=== PATIENT | female | born 1990 | race American Indian/Alaskan Native ===

== ENCOUNTER 2016-08-20 17:18 | Emergency (ER) | payer MEDICAID ==
[2016-08-20 18:45] LABS: Hematocrit 34.6 % (30.3-42.9); Hemoglobin 11.4 gm/dl (10.1-14.3); Mean Corpuscular HGB Conc 33 % (30-34); Mean Corpuscular Hemoglobin 29 pg (28-32); Mean Corpuscular Volume 88 fl (79-97); Platelet Count 317 K/mm3 (140-440); Red Blood Count 3.95 M/mm3 (3.65-5.03); Red Cell Distribution Width 14.6 % (13.2-15.2)
[2016-08-20 20:26] LABS: Bilirubin,Urine NEG (Negative); Blood,Urine SM (Negative); Ketones,Urine NEG (Negative); Leukocyte Esterase,Urine NEG (Negative); Mucus,Urine FEW /HPF; Nitrite,Urine NEG (Negative); Protein,Urine <15 mg/dL mg/dL (Negative); Urobilinogen,Urine < 2.0 mg/dL (<2.0)
--- NOTE | 2016-08-20 20:32 | Emergency Department Report ---
ED Female HPI - General Chief complaint: Vaginal Bleeding Stated complaint: VAGINAL BLEEDING/18WKS Time Seen by Provider: 08/20/16 20:17 Source: patient, RN notes reviewed, old records reviewed Mode of arrival: Ambulatory Limitations: No Limitations - History of Present Illness Initial comments: This is a 26-year-old female. She is previously unknown to me. She is 3, para 2. Last menstrual period is April 10. 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 His past medical history of preeclampsia and -induced hypertension. Presents to the ER complaining of possible episode of bleeding. Patient reports that she defecated earlier on today, saw no blood in her bowel movement , but reports that she saw blood on the towel when she wiped. There is no vaginal bleeding that she is aware of. There is no hematuria. No irritative or obstructive urinary symptoms. No fevers or chills. No chest pain. No shortness of breath. No abdominal pain. Symptoms have since resolved. She denies receptive anal intercourse. She denies recent vigorous sexual intercourse. MD Complaint: other (per hpi) -: This afternoon Consistency: now resolved Improves with: none Worsens with: none Are you Now?: Yes Associated Symptoms: denies: abdominal pain, nausea/vomiting, fever/chills, headaches, loss of appetite, dysuria, hematuria, rash, seizure, shortness of breath, syncope, weakness - Related Data Sexually active: Yes Previous Rx's Medication Instructions Recorded Last Taken Type oxyCODONE /ACETAMINOPHEN [Percocet 2 tab PO Q6HR PRN #30 tablet 05/15/14 Unknown Rx 5/325] HYDROmorphone [Dilaudid] 1 mg PO Q4HR #30 tablet 05/17/14 Unknown Rx Amoxicillin/K Clav Tab [Augmentin 1 each PO Q12HR #20 tablet 05/19/14 Unknown Rx 500 MG TAB] Ferrous Sulfate [Feosol 325 MG tab] 325 mg PO BID #60 tablet 05/19/14 Unknown Rx Ibuprofen [Motrin] 800 mg PO TID PRN #30 tablet 05/19/14 Unknown Rx Labetalol [Normodyne TAB] 200 mg PO BID #60 tablet 05/19/14 Unknown Rx NIFEdipine XL [Procardia Xl] 90 mg PO QDAY #60 tablet 05/19/14 Unknown Rx Sulfamethoxazole/Trimethoprim 1 each PO BID #6 tablet 07/07/14 Unknown Rx [Bactrim Ds] traMADol [Ultram 50 MG tab] 50 mg PO Q6HR PRN #20 tablet 04/12/15 Unknown Rx Allergies Allergy/AdvReac Type Severity Reaction Status Date / Time NSAIDS (Non-Steroidal Allergy Swelling Verified 03/17/14 07:41 Anti-Inflamma ED Review of Systems ROS: Stated complaint: VAGINAL BLEEDING/18WKS Other details as noted in HPI Constitutional: denies: fever Eyes: denies: vision change ENT: denies: epistaxis Respiratory: denies: cough Gastrointestinal: denies: abdominal pain, vomiting Genitourinary: hematuria. denies: dysuria, frequency Musculoskeletal: denies: back pain Skin: denies: rash, lesions Neurological: denies: headache, weakness Psychiatric: anxiety ED Past Medical Hx - Past Medical History Previous Medical History?: Yes Hx Hypertension: Yes (PIH, preeclampsia with previous ) Hx Congestive Heart Failure: No Hx Diabetes: No Hx Deep Vein Thrombosis: No Hx Renal Disease: No Hx Sickle Cell Disease: No Hx Seizures: No Hx Asthma: No Hx COPD: No Hx HIV: No Additional medical history: Pre-eclampsia - Surgical History Past Surgical History?: Yes Additional Surgical History: c section - Social History Smoking Status: Never Smoker Substance Use Type: None - Medications Home Medications: Home Medications Medication Instructions Recorded Confirmed Last Taken Type oxyCODONE /ACETAMINOPHEN [Percocet 2 tab PO Q6HR PRN #30 tablet 05/15/14 Unknown Rx 5/325] HYDROmorphone [Dilaudid] 1 mg PO Q4HR #30 tablet 05/17/14 Unknown Rx Amoxicillin/K Clav Tab [Augmentin 1 each PO Q12HR #20 tablet 05/19/14 Unknown Rx 500 MG TAB] Ferrous Sulfate [Feosol 325 MG tab] 325 mg PO BID #60 tablet 05/19/14 Unknown Rx Ibuprofen [Motrin] 800 mg PO TID PRN #30 tablet 05/19/14 Unknown Rx Labetalol [Normodyne TAB] 200 mg PO BID #60 tablet 05/19/14 Unknown Rx NIFEdipine XL [Procardia Xl] 90 mg PO QDAY #60 tablet 05/19/14 Unknown Rx Sulfamethoxazole/Trimethoprim 1 each PO BID #6 tablet 07/07/14 Unknown Rx [Bactrim Ds] traMADol [Ultram 50 MG tab] 50 mg PO Q6HR PRN #20 tablet 04/12/15 Unknown Rx ED Physical Exam - General Limitations: No Limitations General appearance: alert, in no apparent distress - Head Head exam: Present: atraumatic, normocephalic - Eye Eye exam: Present: normal appearance, EOMI. Absent: nystagmus - ENT ENT exam: Present: normal exam, normal orophraynx, mucous membranes moist, normal external ear exam - Neck Neck exam: Present: normal inspection, full ROM. Absent: tenderness, meningismus - Respiratory Respiratory exam: Present: normal lung sounds bilaterally. Absent: respiratory distress, wheezes, rales, rhonchi, stridor, chest wall tenderness - Cardiovascular Cardiovascular Exam: Present: regular rate, normal rhythm, normal heart sounds. Absent: bradycardia, tachycardia, irregular rhythm, systolic murmur, diastolic murmur, rubs, gallop - GI/Abdominal GI/Abdominal exam: Present: soft, normal bowel sounds, other (her abdomen is nontender, there is no rebound, guarding or peritoneal signs. Uterus is appropriate for dates.). Absent: distended, tenderness, guarding, rebound, rigid, pulsatile mass - Extremities Exam Extremities exam: Present: normal inspection, full ROM, normal capillary refill. Absent: tenderness, pedal edema, joint swelling, calf tenderness - Back Exam Back exam: Present: normal inspection, full ROM. Absent: tenderness, CVA tenderness (R), CVA tenderness (L), muscle spasm, paraspinal tenderness, vertebral tenderness - Neurological Exam Neurological exam: Present: alert, oriented X3, normal gait, other (Extraocular movements intact. Tongue midline. No facial droop. Facial sensation intact to light touch in the V1, V2, V3 distribution bilaterally. 5 and 5 strength in 4 extremities.. Sensation is intact to light touch in 4 extremities.). Absent : motor sensory deficit - Psychiatric Psychiatric exam: Present: normal affect, normal mood - Skin Skin exam: Present: warm, dry, intact, normal color. Absent: rash ED Course Vital Signs 08/20/16 08/20/16 08/20/16 17:44 20:08 20:09 Temperature 98.3 F 99.3 F Pulse Rate 114 H 111 H Respiratory 16 18 Rate Blood Pressure 151/82 Blood Pressure 131/79 [Left] O2 Sat by Pulse 99 98 98 Oximetry 08/20/16 22:40 Temperature 97.9 F Pulse Rate 107 H Respiratory 18 Rate Blood Pressure Blood Pressure 125/56 [Left] O2 Sat by Pulse 100 Oximetry - Reevaluation(s) Reevaluation #1: 08/20/16 21:20 Differential diagnosis: Placenta previa, urinary tract infection, anal fissure, hemorrhoids Assessment and plan: 26-year-old female proximal 80 weeks with resolved episode of bleeding. She is afebrile, hypertension has since resolved, tachycardia has resolved. Given possibility of atypical presentation for placenta previa, a transabdominal ultrasound is ordered. Once that has been resulted, we'll perform an external gynecologic examination and rectal examination Reevaluation #2: 08/20/16 22:36\ Pelvic examination: No cervical motion tenderness, no adnexal tenderness, no obvious bleeding. Gynecologic/rectal examination: No obvious hemorrhoids, possible fissure at 6:00 , brown stool, trace guaiac positive. escorted by marcello TREVIZO during rectal exam Abdominal ultrasound shows intra uterine , no obvious placenta previa. Icing heart rate now 107, this may be physiologic tachycardia of , with a blood pressure 125/56. The patient reports that she feels well, and has follow-up tomorrow with her primary care [facility]PER[facility]. May have a fissure versus constipation. Hemoglobin and hematocrit stable, I don 't believe patient requires admission to the hospital at this time. She is instructed on how to perform sitz baths. She will be discharged. Return precautions are reviewed. ED Medical Decision Making - Lab Data Result diagrams: 08/20/16 18:28 08/20/16 18:28 Vital Signs 08/20/16 08/20/16 08/20/16 17:44 20:08 20:09 Temperature 98.3 F 99.3 F Pulse Rate 114 H 111 H Respiratory 16 18 Rate Blood Pressure 151/82 Blood Pressure 131/79 [Left] O2 Sat by Pulse 99 98 98 Oximetry Labs 08/20/16 08/20/16 08/20/16 18:28 18:28 18:28 WBC 11.0 RBC 3.95 Hgb 11.4 Hct 34.6 MCV 88 MCH 29 MCHC 33 RDW 14.6 Plt Count 317 Lymph % (Auto) 20.4 Centre % (Auto) 9.0 H Eos % (Auto) 1.0 Baso % (Auto) 1.0 Lymph # 2.2 Centre # 1.0 H Eos # 0.1 Baso # 0.1 Seg Neutrophils % 68.6 Seg Neutrophils # 7.6 HCG, Quant 5070 H Urine Color Urine Turbidity Urine pH Ur Specific [place] Urine Protein Urine Glucose (UA) Urine Ketones Urine Blood Urine Nitrite Urine Bilirubin Urine Urobilinogen Ur Leukocyte Esterase Urine WBC (Auto) Urine RBC (Auto) U Epithel Cells (Auto) Urine Mucus Blood Type A POSITIVE 08/20/16 Unknown WBC RBC Hgb Hct MCV MCH MCHC RDW Plt Count Lymph % (Auto) Centre % (Auto) Eos % (Auto) Baso % (Auto) Lymph # Centre # Eos # Baso # Seg Neutrophils % Seg Neutrophils # HCG, Quant Urine Color Yellow Urine Turbidity Clear Urine pH 7.0 Ur Specific [place] 1.012 Urine Protein <15 mg/dl Urine Glucose (UA) >=500 Urine Ketones Neg Urine Blood Sm Urine Nitrite Neg Urine Bilirubin Neg Urine Urobilinogen < 2.0 Ur Leukocyte Esterase Neg Urine WBC (Auto) 1.0 Urine RBC (Auto) 2.0 U Epithel Cells (Auto) < 1.0 Urine Mucus Few Blood Type - Radiology Data Radiology results: pending, report reviewed, image reviewed Transabdominal ultrasound demonstrates an intrauterine , 18 weeks and 1 day, good correlation to last menstrual period, no evidence for placenta previa or abruption. Of note, no clinical suspicion for placental abruption at this time. Critical care attestation.: If time is entered above; I have spent that time in minutes in the direct care of this critically ill patient, excluding procedure time. ED Disposition Clinical Impression: Qualifiers: Weeks of gestation: 18 weeks Qualified Code(s): Z3A.18 - 18 weeks gestation of Disposition: DISCHARGED TO HOME OR SELFCARE Is pt being admited?: No Does the pt Need Aspirin: No Condition: Stable Instructions: Constipation (ED), Anal Fissure (ED), High Fiber Diet (ED) Additional Instructions: Continue current outpatient medications. Laboratory studies were essentially unremarkable. Urinalysis demonstrated sugar in the urine. Blood pressure was initially elevated. He should be followed up within the next week by her primary care implementation specialist. 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 Drink 6-8 cups of water per day. Eat plenty of fruits, fibers, vegetables. you may also fill a hot tub with water, and soak your buttocks in it as needed ER right away with fevers or chills, chest pain or shortness of breath, intractable nausea or vomiting, inability to tolerate liquid feeds, new, worsening or different symptoms. Referrals: PRIMARY CARE, [Primary Care Provider] - 3-5 Days [facility] [Provider Group] - 3-5 Days Forms: Accompanied Note, Work/School Release Form(ED)
--- NOTE | 2016-08-20 21:41 | Ultrasound Report ---
FINAL REPORT EXAM: US OB \T\gt; = 14 WEEKS FETUS HISTORY: ? vag bleed . Possible previa. TECHNIQUE: Limited obstetrical ultrasound PRIORS: Ultrasound 07/28/2016 FINDINGS: LMP: 04/10/2016 clinical Age: 18 W 6 d US Age (average) = 18 W 1 d EFW (BPD,HC,AC,FL) = 221g 33g (0 lbs. 8oz. 1oz.) LMP EDC 01/15/2017 US EDC 01/20/2017 CI 75.1 (Range 74 to 83 HC/AC 1.22 (Range 1.07 To 1.29 FL/BPD 66.0 FL/HC 17.5 (Range 13.6 to 20.2 FL/AC 21.3 BPD 4.0 cm corresponding to age 18 weeks 1 day HC 15.1 cm corresponding to age 18 weeks 1 day AC 12.4 cm corresponding to age 18 weeks 0 days FL 2.7 cm corresponding to age 18 weeks 0 days Presentation: Transverse with the head to the maternal right Activity: Monitored Situs: Normal Placental location: Anterior without evidence for previa or abruption Placental grade: 0 Cardiac motion: 166 BPM using M-mode doppler Amniotic Fluid Volume: Adequate Cervical Length: 4.1 cm anatomic evaluation is limited due to the gestational age. IMPRESSION: Single intrauterine viable with an approximate age of 18 weeks 1 days with good correlation to the LMP. No evidence for placenta previa or abruption is seen.
[2016-08-20 21:57] LABS: Alanine Aminotransferase 10 units/L (7-56); Albumin 3.6 g/dL (3.9-5); Alkaline Phosphatase 74 units/L (35-129); Anion Gap 20 mmol/L; Bilirubin,Total < 0.2 mg/dL (0.1-1.2); Blood Urea Nitrogen 5 mg/dL (7-17); Calcium 9.4 mg/dL (8.4-10.2); Carbon Dioxide 20 mmol/L (22-30); Glucose 155 mg/dL (65-100); Sodium 135 mmol/L (137-145); Total Protein 7.2 g/dL (6.3-8.2)
[2016-08-20 23:18] VITALS: BP 125/56
== END 2016-08-20 22:55 | disposition home or self-care (01) ==
LOC: ED 17:18
DX: Z34.82 Encounter for supervision of other normal pregnancy, second trimester (principal); O16.2 Unspecified maternal hypertension, second trimester; Z3A.18 18 weeks gestation of pregnancy; Z88.8 Allergy status to other drugs, medicaments and biological substances
CPT/HCPCS: 36415; 76805; 80053; 81001; 82271; 84702; 85025; 86850; 86900; 86901

== ENCOUNTER 2016-12-19 15:04 | Outpatient (CLI) | payer MEDICAID ==
[2016-12-19 17:00] LABS: Hematocrit 34.8 % (30.3-42.9); Hemoglobin 11.3 gm/dl (10.1-14.3); Mean Corpuscular HGB Conc 33 % (30-34); Mean Corpuscular Hemoglobin 29 pg (28-32); Mean Corpuscular Volume 88 fl (79-97); Platelet Count 262 K/mm3 (140-440); Red Blood Count 3.95 M/mm3 (3.65-5.03); Red Cell Distribution Width 15.1 % (13.2-15.2); White Blood Count 7.3 K/mm3 (4.5-11.0)
[2016-12-19 17:16] LABS: Lactate Dehydrogenase 262 units/L (91-180); Uric Acid 5.4 mg/dL (3.5-7.6)
[2016-12-19 17:25] LABS: Bacteria,Urine 2+ /HPF (Negative); Bilirubin,Urine NEG (Negative); Blood,Urine NEG (Negative); Ketones,Urine 80 mg/dL (Negative); Leukocyte Esterase,Urine NEG (Negative); Mucus,Urine FEW /HPF; Nitrite,Urine NEG (Negative); Protein,Urine <15 mg/dL mg/dL (Negative); Urobilinogen,Urine < 2.0 mg/dL (<2.0)
[2016-12-19 18:07] VITALS: BP 133/77
[2016-12-19] MEDS ORDERED: TYLENOL #3 PO ONE (19:00)
[2016-12-19] MEDS ORDERED: TYLENOL PO ONE (19:00)
== END 2016-12-19 18:40 | disposition home or self-care (01) ==
LOC: TRG 15:04
PROVIDERS: ATTEND Obstetrics & Gynecology
DX: O47.03 False labor before 37 completed weeks of gestation, third trimester (principal); Z3A.36 36 weeks gestation of pregnancy
CPT/HCPCS: 36415; 59025; 81001; 82565; 82962; 83615; 84450; 84550; 85027; 86850; 86900; 86901

== ENCOUNTER 2017-02-24 05:53 | Emergency (ER) | payer MEDICAID ==
[2017-02-24 06:19] VITALS: BP 136/86
[2017-02-24] MEDS ORDERED: XYLOCAINE 2% INFILTRATI ONE (07:04)
--- NOTE | 2017-02-24 07:10 | Emergency Department Report ---
HPI - General Chief Complaint: Skin/Abscess/Foreign Body Time Seen by Provider: 02/24/17 07:04 - HPI HPI: This is a 26-year-old -[place] female presents to the emergency department with a boil or an abscess that has formed within the right armpit. Over the past 4 days. She says that she has a history of this one time previously in the other armpit. She has not taken anything for her symptoms prior to presentation. No recent travel or sick contacts at home. She does not have a primary care physician. She denies any current medical conditions but did just recently have a child and had some -induced hypertension at that time. She feels that the area is tender, swollen and red and warm. ED Past Medical Hx - Past Medical History Hx Hypertension: Yes (PIH, preeclampsia with previous ) Hx Congestive Heart Failure: No Hx Diabetes: No Hx Deep Vein Thrombosis: No Hx Renal Disease: No Hx Sickle Cell Disease: No Hx Seizures: No Hx Asthma: No Hx COPD: No Hx HIV: No Additional medical history: Pre-eclampsia - Surgical History Additional Surgical History: c section - Social History Smoking Status: Never Smoker Substance Use Type: None - Medications Home Medications: Home Medications Medication Instructions Recorded Confirmed Last Taken Type oxyCODONE /ACETAMINOPHEN [Percocet 2 tab PO Q6HR PRN #30 tablet 05/15/14 Unknown Rx 5/325] HYDROmorphone [Dilaudid] 1 mg PO Q4HR #30 tablet 05/17/14 Unknown Rx Amoxicillin/K Clav Tab [Augmentin 1 each PO Q12HR #20 tablet 05/19/14 Unknown Rx 500 MG TAB] Ferrous Sulfate [Feosol 325 MG tab] 325 mg PO BID #60 tablet 05/19/14 Unknown Rx Ibuprofen [Motrin] 800 mg PO TID PRN #30 tablet 05/19/14 Unknown Rx Labetalol [Normodyne TAB] 200 mg PO BID #60 tablet 05/19/14 Unknown Rx NIFEdipine XL [Procardia Xl] 90 mg PO QDAY #60 tablet 05/19/14 Unknown Rx Sulfamethoxazole/Trimethoprim 1 each PO BID #6 tablet 07/07/14 Unknown Rx [Bactrim Ds] traMADol [Ultram 50 MG tab] 50 mg PO Q6HR PRN #20 tablet 04/12/15 Unknown Rx HYDROcodone/APAP 5-325 [Perry 1 each PO Q6H PRN #10 tablet 02/24/17 Unknown Rx 5-325 mg TAB] Sulfamethoxazole/Trimethoprim 1 each PO BID #14 tablet 02/24/17 Unknown Rx [Bactrim DS TAB] ED Review of Systems ROS: Stated complaint: BOIL Other details as noted in HPI Comment: All other systems reviewed and negative Constitutional: denies: chills, fever Eyes: denies: eye pain, eye discharge, vision change ENT: denies: ear pain, throat pain Respiratory: denies: cough, shortness of breath, wheezing Cardiovascular: denies: chest pain, palpitations Gastrointestinal: denies: abdominal pain, nausea, diarrhea Genitourinary: denies: urgency, dysuria, discharge Musculoskeletal: denies: back pain, joint swelling, arthralgia Skin: lesions, change in color Neurological: denies: headache, weakness, paresthesias Physical Exam - Physical Exam Vital Signs: Vital Signs 02/24/17 06:14 Temperature 99.1 F Pulse Rate 96 H Respiratory 16 Rate Blood Pressure 136/86 Blood Pressure 136/86 [Left] O2 Sat by Pulse 100 Oximetry Physical Exam: GENERAL: The patient is well-developed well-nourished. HENT: Normocephalic. Atraumatic. Patient has moist mucous membranes. EYES: Extraocular motions are intact. Pupils equal reactive to light bilaterally. NECK: Supple. Trachea is midline. CHEST/LUNGS: Clear to auscultation. There is no respiratory distress noted. HEART/CARDIOVASCULAR: Regular. There is no tachycardia. ABDOMEN: Abdomen is soft, nontender. Patient has normal bowel sounds. SKIN: There appears to be an abscess and cellulitis to the right axilla. There is erythematous, thickened skin. Underlying mass there is a area of swelling that is tender and appears slightly fluctuant. NEURO: The patient is awake, alert, and oriented. The patient is cooperative. The patient has no focal neurologic deficits. The patient has normal speech. MUSCULOSKELETAL: There is no tenderness or deformity. There is no limitation range of motion. There is no evidence of acute injury. ED Course Vital Signs 02/24/17 06:14 Temperature 99.1 F Pulse Rate 96 H Respiratory 16 Rate Blood Pressure 136/86 Blood Pressure 136/86 [Left] O2 Sat by Pulse 100 Oximetry - I & D Right Arm Type of Procedure: Simple Site: Right axilla Blade Size: 11 I & D Procedure: betadine prep, sterile drapes applied, sterile dressing applied Progress: Betadine used to clean the area. 2 mL of 2% lidocaine without epinephrine were used for superficial and slightly more deep localized anesthesia. An 11 blade scalpel was then used to make a 1.5 cm incision to the area that appeared most fluctuant. There was no discharge of pus. Attempted to break up any loculations with forceps but still no purulent discharge. Pressure held and then sterile gauze applied. ED Medical Decision Making - Medical Decision Making 36-year-old female presents with a right axilla cellulitis and underlying abscess. The abscess is fluctuant, however after the I&D was done there did not appear to be any significant discharge of pus. Pressure was held and a sterile dressing was then placed. She was given a dose of pain medication and antibiotics in the emergency department. She will go on a prescription for both. We discussed using warm compress multiple times per day and we discussed monitoring for any further/worsening infection. Vital signs stable including being afebrile. - Differential Diagnosis abscess, cellulitis, cyst, folliculitis, hidradenitis Critical Care Time: No Critical care attestation.: If time is entered above; I have spent that time in minutes in the direct care of this critically ill patient, excluding procedure time. ED Disposition Clinical Impression: Cellulitis of axilla, right, Abscess of axilla, right Disposition: DC-01 TO HOME OR SELFCARE Is pt being admited?: No Condition: Stable Instructions: Cellulitis (ED), Abscess (ED) Additional Instructions: Please follow-up with your primary care physician in the next few days. You should use warm, but not hot, compresses to the right arm pit for a few times per day over the next few days to see if you can help and express any infection from the abscess. If the redness starts spreading, or there is any worsening of the infection, then you need to return to the emergency department or be seen by a medical provider sooner. Take the antibiotics as prescribed. You have been prescribed a medication that is sedating and therefore should not be taken prior to driving, working, and responsible for children and in no way should be mixed with alcohol of any quantity. Prescriptions: HYDROcodone/APAP 5-325 [Perry 5-325 mg TAB] 1 each PO Q6H PRN #10 tablet PRN Reason: Pain Sulfamethoxazole/Trimethoprim [Bactrim DS TAB] 1 each PO BID #14 tablet Referrals: PRIMARY CARE, [Primary Care Provider] - EP[facility]ANIO Time of Disposition: 07:47
[2017-02-24] MEDS ORDERED: BACTRIM DS PO ONE (07:34)
[2017-02-24] MEDS ORDERED: NORCO 5/325 PO ONE (07:34)
== END 2017-02-24 08:13 | disposition home or self-care (01) ==
LOC: ED 05:53
DX: L02.411 Cutaneous abscess of right axilla (principal); L03.111 Cellulitis of right axilla; I10 Essential (primary) hypertension
CPT/HCPCS: 99282

== ENCOUNTER 2018-08-12 08:10 | Emergency (ER) | payer MEDICAID ==
--- NOTE | 2018-08-12 09:34 | Emergency Department Report ---
- General Chief complaint: Wound/Laceration Stated complaint: INCISION INFLAMMED Time Seen by Provider: 08/12/18 09:00 Source: patient Mode of arrival: Ambulatory Limitations: No Limitations - History of Present Illness Initial comments: 28-year-old female presents to the hospital complaining of irritation at the area of her scar. Patient had a delivery 1 year ago and states that she had a cellulitis infection afterwards. She is concerned that she has redeveloped an infection. She states this is different from the previous infection which was red, warm, and required hospitalization. For the past 2-3 days she has had burning, pruritus, and moisture to the area of her C- section scar. She also reports dry pruritic rash under her left breast. No reports of fever or purulent drainage. - Related Data Previous Rx's Medication Instructions Recorded Last Taken Type Clotrimazole 1% [Lotrimin 1%] 1 applic TP BID 28 Days tube 08/12/18 Unknown Rx Allergies Allergy/AdvReac Type Severity Reaction Status Date / Time latex Allergy Hives Verified 04/03/17 15:52 NSAIDS (Non-Steroidal Allergy Swelling Verified 04/03/17 15:52 Anti-Inflamma Abscess Boil HPI - HPI Chief Complaint: Wound/Laceration Stated Complaint: INCISION INFLAMMED Time Seen by Provider: 08/12/18 09:00 Home Medications: Previous Rx's Medication Instructions Recorded Last Taken Type Clotrimazole 1% [Lotrimin 1%] 1 applic TP BID 28 Days tube 08/12/18 Unknown Rx Allergies/Adverse Reactions: Allergies Allergy/AdvReac Type Severity Reaction Status Date / Time latex Allergy Hives Verified 04/03/17 15:52 NSAIDS (Non-Steroidal Allergy Swelling Verified 04/03/17 15:52 Anti-Inflamma ED Review of Systems ROS: Stated complaint: INCISION INFLAMMED Other details as noted in HPI Comment: All other systems reviewed and negative ED Past Medical Hx - Past Medical History Hx Hypertension: Yes (PIH, preeclampsia with previous ) Hx Congestive Heart Failure: No Hx Diabetes: No Hx Deep Vein Thrombosis: No Hx Renal Disease: No Hx Sickle Cell Disease: No Hx Seizures: No Hx Asthma: No Hx COPD: No Hx HIV: No Additional medical history: Pre-eclampsia - Surgical History Additional Surgical History: c section - Social History Smoking Status: Never Smoker Substance Use Type: None - Medications Home Medications: Home Medications Medication Instructions Recorded Confirmed Last Taken Type Clotrimazole 1% [Lotrimin 1%] 1 applic TP BID 28 Days tube 08/12/18 Unknown Rx ED Physical Exam - General Limitations: No Limitations - Other Other exam information: General: No limitations, patient is alert in no acute distress Head exam: Atraumatic, normocephalic Eyes exam: Normal appearance ENT: Moist mucous membrane Neck exam: Normal inspection, full range of motion Respiratory exam: Clear to auscultation bilateral, no wheezes, rales, crackles Cardiovascular: Normal rate and rhythm Abdomen: Soft, nondistended, and nontender, with normal bowel sounds, no rebound, or guarding Extremity: Full range of motion normal inspection no deformity Back: Normal Inspection, full range of motion, no tenderness Neurologic: Alert, oriented x3 Psychiatric: normal affect, normal mood Skin: Patient has a fungal type of rash to the area of her scar and pannus overlying the area. It is dark discolored, moist, sharply demarcated. Patient also has a similar appearing rash under her left breast but it is not moist. No warmth or erythema. ED Course Vital Signs 08/12/18 08:54 Temperature 99.0 F Pulse Rate 80 Blood Pressure 136/79 ED Medical Decision Making - Medical Decision Making Patient has a fungal infarction from overlying skin at area pannus and lower abdomen. Will be prescribed a cream and instructed to keep area dry. - Differential Diagnosis cellulitis, fungal infection, tinea Critical Care Time: No Critical care attestation.: If time is entered above; I have spent that time in minutes in the direct care of this critically ill patient, excluding procedure time. ED Disposition Clinical Impression: Fungal infection of skin of abdomen Disposition: DC-01 TO HOME OR SELFCARE Is pt being admited?: No Does the pt Need Aspirin: No Condition: Stable Instructions: Hai Purcell (ED) Additional Instructions: Take the medication as prescribed. Follow up with your doctor or the clinic/doctor provided. Return if symptoms worsen as indicated by your discharge instructions Prescriptions: Clotrimazole 1% [Lotrimin 1%] 1 applic TP BID 28 Days tube Referrals: ALEXI TODD MD [Primary Care Provider] - 3-5 Days [facility] [Provider Group] - 3-5 Days Time of Disposition: 09:36
== END 2018-08-12 09:41 | disposition home or self-care (01) ==
LOC: ED 08:10
CPT/HCPCS: 99282

== ENCOUNTER 2020-01-06 08:28 | Day surgery (SDC) | payer MEDICAID, OTHER ==
[2020-01-05 10:47] LABS: Hematocrit 32.2 % (30.3-42.9); Hemoglobin 10.3 gm/dl (10.1-14.3); Mean Corpuscular HGB Conc 32 % (30-34); Mean Corpuscular Volume 80 fl (79-97); Platelet Count 388 K/mm3 (140-440); Red Blood Count 4.04 M/mm3 (3.65-5.03); Red Cell Distribution Width 17.2 % (13.2-15.2)
--- NOTE | 2020-01-05 14:15 | Anesthesia Consultation ---
Anesthesia Consult and Med Hx Date of service: 01/05/20 - Airway Anesthetic Teeth Evaluation: Good ROM Head & Neck: Adequate Mental/Hyoid Distance: Adequate Mallampati Class: Class II Intubation Access Assessment: Probably Good - Pulmonary Exam CTA: Yes - Cardiac Exam Cardiac Exam: RRR - Pre-Operative Health Status ASA Pre-Surgery Classification: ASA2 Proposed Anesthetic Plan: General - Pulmonary Hx Smoking: Yes Hx Respiratory Symptoms: No - Cardiovascular System Hx Hypertension: Yes Hx Heart Attack/AMI: No Hx Cardia Arrhythmia: No - Central Nervous System CVA: No - Gastrointestinal Hx Gastroesophageal Reflux Disease: No - Endocrine Hx Renal Disease: No Hx Liver Disease: No Hx Insulin Dependent Diabetes: No Hx Non-Insulin Dependent Diabetes: No Hx Thyroid Disease: No - Hematic Hx Anemia: Yes - Other Systems Hx Obesity: Yes (BMI 36) - Additional Comments Anesthesia Medical History Comments: No hx anesthetic complications. Patient experienced presumed anxiety attack immediately prior to emergent under GA and expressed significant apprehension about upcoming surgery for that reason. Will give anxielytic preoperatively.
[~2020-01-06 08:28] MED LIST: GABAPENTIN 300 MG CAP PO NR; LACTATED RINGERS 1,000 ML IV SCH; MAGNESIUM OXIDE 400 MG TAB PO SCH; MIDAZOLAM 2 MG/2 ML INJ IV NR
[2020-01-06] MEDS ORDERED: ONDANSETRON 4 MG/2 ML INJ IV PRN (08:51)
--- NOTE | 2020-01-06 08:51 | Anesthesia Day of Surgery ---
Anesthesia Day of Surgery - Day of Surgery Patient Examined: Yes Patient H&P Reviewed: Yes Patient is NPO: Yes
--- NOTE | 2020-01-06 11:50 | Short Stay Summary ---
Short Stay Documentation Date of service: 01/06/20 Narrative H&P: 26-year-old -0-1-2 with undesired fertility. The patient is undergoing a permanent sterilization with Filshie clips. She is aware of other contraceptive options and has elected to undergo permanent sterilization. - History Principal diagnosis: Undesired fertility Past Medical History: No medical history Past Surgical History: Social history: single - Allergies and Medications Current Medications: Allergies latex Allergy (Verified 01/01/20 16:04) Hives NSAIDS (Non-Steroidal Anti-Inflamma Allergy (Verified 01/01/20 16:04) Hives strawberry Allergy (Verified 01/01/20 16:04) Hives Home Medications Medication Instructions Recorded Confirmed Last Taken Type Ergocalciferol(Vitamin D2)(Nf) 400 unit PO DAILY 01/01/20 01/01/20 Unknown History [Vitamin D (Nf)] Active Medications Gabapentin (Gabapentin) 600 mg PO PREOP NR Stop: 01/06/20 23:59 Last Admin: 01/06/20 09:11 Dose: 600 mg Documented by: Hydromorphone HCl (Dilaudid) 0.5 mg IV Q10MIN PRN PRN Reason: Pain , Severe (7-10) Stop: 01/06/20 22:00 Lactated Ringer's (Lactated Ringers) 1,000 mls @ 100 mls/hr IV DIRECT WILLI Stop: 01/06/20 23:59 Last Admin: 01/06/20 09:10 Dose: 100 mls/hr Documented by: Magnesium Oxide (Mag-Ox) 400 mg PO PREOP WILLI Stop: 01/06/20 23:59 Last Admin: 01/06/20 09:12 Dose: 400 mg Documented by: Midazolam HCl (Versed) 2 mg IV PREOP NR Stop: 01/06/20 23:59 Ondansetron HCl (Zofran) 4 mg IV ONCE PRN PRN Reason: Nausea And Vomiting Stop: 01/06/20 16:00 - Physical exam General appearance: no acute distress Integumentary: no rash HEENT: Atraumatic Lungs: Clear to auscultation Breasts: deferred Heart: Regular rate Gastrointestinal: normal Female Genitourinary: deferred Rectal Exam: deferred Extremities: no ischemia Neurological: Normal gait - Brief post op/procedure progress note Date of procedure: 01/06/20 Pre-op diagnosis: Unwanted fertility Post-op diagnosis: same Procedure: Laparoscopic bilateral tubal ligation with Filshie clips Anesthesia: AUREA Surgeon: LIMA ESTRADA Estimated blood loss: minimal Pathology: none Condition: stable - Hospital course Hospital course: The patient was admitted the day of surgery underwent a laparoscopic bilateral tubal ligation with Filshie clips. Please see operative note for details of surgery. Her postoperative course was uneventful. - Disposition Condition at discharge: Good Disposition: DC-01 TO HOME OR SELFCARE - Discharge Diagnoses (1) Unwanted fertility Status: Acute Short Stay Discharge Plan Activity: other (Pelvic rest for 1 week) Diet: regular Additional Instructions: Follow-up is not required Follow-up as needed Prescriptions: HYDROcodone/APAP 5-325 [[place] 5/325] 1 each PO Q6HR PRN #20 tablet PRN Reason: Pain
[2020-01-06] MEDS ORDERED: BUPIVACAINE/PF (0.5%) 5 MG/1 ML 10 ML VIAL INFILTRATI ONE ×2 (12:08→13:05)
[2020-01-06] MEDS ORDERED: propofoL 200 MG/20 ML VIAL IV ONE ×2 (12:09→12:41)
[2020-01-06] MEDS ORDERED: dexAMETHasone 20 MG/5 ML VIAL ONE (12:09)
[2020-01-06] MEDS ORDERED: LIDOCAINE MPF (2%) 20 MG/1 ML VIAL 5 ML ONE (12:09)
[2020-01-06] MEDS ORDERED: ONDANSETRON 4 MG/2 ML INJ ONE (12:09)
[2020-01-06] MEDS ORDERED: ROCURONIUM 50 MG/5 ML INJ IV ONE (12:09)
[2020-01-06] MEDS ORDERED: fentaNYL 100 MCG/2 ML INJ ONE (12:09)
[2020-01-06] MEDS ORDERED: SODIUM CHLORIDE 0.9% IRR 1,500 ML BOTTLE IR ONE (13:06)
[2020-01-06] MEDS ORDERED: GLYCOPYRROLATE 0.4 MG/2 ML INJ ONE (13:12)
[2020-01-06] MEDS ORDERED: NEOSTIGMINE 10MG/10 ML INJ MDV ONE (13:12)
--- NOTE | 2020-01-06 13:26 | Operative Report ---
Operative Report Operative Report: Date of surgery: January 06, 2020 Preoperative diagnosis: Unwanted fertility Postoperative diagnosis: Same as above Procedure: Laparoscopic bilateral tubal ligation with Filshie clips Surgeon: Sofia Moore M.D. Anesthesia: General endotracheal anesthesia Estimated blood loss: Minimal Pathology: None Findings: Normal tubes and ovaries bilaterally; densely adherent uterus to the anterior abdominal wall. Indication: 29-year-old with undesired fertility Procedure: The patient was taken to the operating room and given general endotracheal anesthesia without complication. The patient is prepped and draped in a normal sterile fashion. A bivalve speculum was placed in the patient's vagina and a single-tooth tenaculum was placed on the anterior lip of the cervix .A uterine acorn manipulator was placed, and the bivalve speculum was then removed. Attention was then turned to the patient's abdomen where a 5 mm infraumbilical skin incision was then made. A Veress needle was placed and peritoneal entry was verified water-filled syringe. Insufflation of the peritoneal cavity was performed with CO2 gas. A 5 mm trocar was placed and the laparoscope was then inserted. The patient was then placed in Trendelenburg. A 7 mm left lateral incision was then made. Under direct visualization a 7 mm trocar was then placed. General survey of the patient's abdomen revealed normal tubes and ovaries; densely adherent uterus to the anterior abdominal wall.. The fallopian tube was then followed out to the fimbriated end. The Filshie clip was placed on the ampullary portion of the tube. This was performed on the contralateral side as well. The trocars were then removed. The pneumoperitoneum was then released. The 5 mm trocar laparoscope was then removed. The skin incisions were then closed with 4-0 Monocryl. The incisions were injected with quarter percent Marcaine. Dressings were applied to the incision. The vaginal instruments were then removed atraumatically. Then successfully extubated and taken to the recovery room. All sponge laps and needle counts were correct x2.
[2020-01-06] MEDS: HYDROmorphone 1 MG/1 ML INJ IV PRN ×2 (13:40→13:50)
[2020-01-06] MEDS ORDERED: HYDROcodone/ACETAMINOPHEN 5-325 MG TAB PO PRN (14:06)
[2020-01-06 14:25] VITALS: BP 145/73
--- NOTE | 2020-01-06 16:06 | Post Anesthesia Evaluation ---
- Post Anesthesia Evaluation Patient Participated: Yes Airway Patent: Yes Stable Respiratory Function: Yes Nausea/Vomiting: No Temp > 96.8F: Yes Pain Manageable: Yes Adequeate Hydration: Yes Anesthesia Complications: No
== END 2020-01-06 15:00 | disposition home or self-care (01) ==
LOC: OR 08:28
PROVIDERS: ATTEND Obstetrics & Gynecology
DX: Z30.2 Encounter for sterilization (principal); I10 Essential (primary) hypertension; E66.9 Obesity, unspecified; M19.90 Unspecified osteoarthritis, unspecified site; D64.9 Anemia, unspecified; Z88.6 Allergy status to analgesic agent; Z79.899 Other long term (current) drug therapy; Z91.040 Latex allergy status; Z98.891 History of uterine scar from previous surgery; Z72.89 Other problems related to lifestyle; Z83.3 Family history of diabetes mellitus; Z68.36 Body mass index [BMI] 36.0-36.9, adult; Z80.8 Family history of malignant neoplasm of other organs or systems; Z82.49 Family history of ischemic heart disease and other diseases of the circulatory system
CPT/HCPCS: 36415; 58671; 84703; 85027; J1100; J1170; J2250; J2405; J2704; J2710; J3010; J7120

== ENCOUNTER 2020-08-18 01:45 | Emergency (ER) | payer OTHER ==
[2020-08-18] MEDS ORDERED: ONDANSETRON 4 MG/2 ML INJ IV ONE ×2 (01:57→05:24)
[2020-08-18] MEDS ORDERED: HYDROmorphone 1 MG/1 ML INJ IV ONE ×2 (01:57→05:24)
[2020-08-18] MEDS ORDERED: SULFAMETHOXAZOLE/TRIMETHOPRIM 800/160MG DS TAB PO ONE (01:57)
[2020-08-18] MEDS ORDERED: LIDOCAINE (1%) 10 MG/1 ML VIAL 20 ML MDV INFILTRATI ONE (01:57)
--- NOTE | 2020-08-18 02:11 | Emergency Department Report ---
ED General Adult HPI - General Chief complaint: Skin/Abscess/Foreign Body Stated complaint: ARMPIT PAIN/SWELLING/FEVER Source: patient Mode of arrival: Ambulatory Limitations: No Limitations - History of Present Illness Initial comments: Patient is a 30-year-old -[place] female with a history of obesity and recurrent chronic hidradenitis rashes who presents to the ED with complaint of acute onset persistent painful swollen erythematous maculopapular rash on right axilla for the last 1 week, worse in the last 2 days. Patient states that she is unable perform any active range of motion with right hand right arm because of worsening right axillary pain. Patient states that she has previously experiencing the symptoms and has had to come multiple times to the ED for I&D procedure. Patient states that the last episode of similar rash was about 3 months ago. Patient denies fever, chills, nausea, vomiting, dizziness, syncope, traumatic injury, headache, chest pain or shortness of breath, numbness and tingling or weakness of right arm and neck pain. MD Complaint: Painful swollen rash on right axilla -: Sudden, week(s) (1) Location: upper extremity (RIGHT AXILLA) Radiation: non-radiation Severity scale (0 -10): 9 Quality: aching, sharp Consistency: constant Improves with: none Worsens with: movement Associated Symptoms: denies other symptoms, rash (Swollen erythematous severely painful rash on right axilla). denies: confusion, chest pain, cough, diaphoresis, fever/chills, headaches, loss of appetite, malaise, nausea/vomiting, seizure, shortness of breath - Related Data Home Medications Medication Instructions Recorded Confirmed Last Taken Ergocalciferol(Vitamin D2)(Nf) 400 unit PO DAILY 01/01/20 01/06/20 01/05/20 09:00 [Vitamin D (Nf)] Previous Rx's Medication Instructions Recorded Last Taken Type Clindamycin [Clindamycin CAP] 300 mg PO Q8HR #60 capsule 08/18/20 Unknown Rx Fluconazole (Nf) [Diflucan TAB] 150 mg PO ONCE #1 tablet 08/18/20 Unknown Rx HYDROcodone/APAP 5-325 [[place] 1 each PO Q6HR PRN #12 tablet 08/18/20 Unknown Rx 5-325 mg TAB] Ondansetron [Zofran Odt] 4 mg PO Q6HR PRN #15 tab.rapdis 08/18/20 Unknown Rx Sulfamethoxazole/Trimethoprim 1 each PO Q12H #20 tablet 08/18/20 Unknown Rx [Bactrim DS TAB] Allergies Allergy/AdvReac Type Severity Reaction Status Date / Time latex Allergy Hives Verified 01/01/20 16:04 NSAIDS (Non-Steroidal Allergy Hives Verified 01/01/20 16:04 Anti-Inflamma strawberry Allergy Hives Verified 01/01/20 16:04 ED Review of Systems ROS: Stated complaint: ARMPIT PAIN/SWELLING/FEVER Other details as noted in HPI Constitutional: denies: chills, fever Eyes: denies: eye pain, eye discharge, vision change ENT: denies: ear pain, throat pain Respiratory: denies: cough, shortness of breath, wheezing Cardiovascular: denies: chest pain, palpitations Endocrine: no symptoms reported Gastrointestinal: denies: abdominal pain, nausea, diarrhea Genitourinary: denies: urgency, dysuria, discharge Musculoskeletal: denies: back pain, joint swelling, arthralgia Skin: rash (Painful, swollen, erythematous maculopapular rash on right axilla), change in color. denies: lesions Neurological: denies: headache, weakness, paresthesias Psychiatric: denies: anxiety, depression Hematological/Lymphatic: denies: easy bleeding, easy bruising ED Past Medical Hx - Past Medical History Hx Hypertension: Yes (PIH, preeclampsia with previous ) Hx Congestive Heart Failure: No Hx Diabetes: No Hx Deep Vein Thrombosis: No Hx Renal Disease: No Hx Sickle Cell Disease: No Hx Seizures: No Hx Asthma: No Hx COPD: No Hx HIV: No Additional medical history: Pre-eclampsia - Surgical History Additional Surgical History: c section - Social History Smoking Status: Never Smoker - Medications Home Medications: Home Medications Medication Instructions Recorded Confirmed Last Taken Type Ergocalciferol(Vitamin D2)(Nf) 400 unit PO DAILY 01/01/20 01/06/20 01/05/20 09:00 History [Vitamin D (Nf)] Clindamycin [Clindamycin CAP] 300 mg PO Q8HR #60 capsule 08/18/20 Unknown Rx Fluconazole (Nf) [Diflucan TAB] 150 mg PO ONCE #1 tablet 08/18/20 Unknown Rx HYDROcodone/APAP 5-325 [[place] 1 each PO Q6HR PRN #12 tablet 08/18/20 Unknown Rx 5-325 mg TAB] Ondansetron [Zofran Odt] 4 mg PO Q6HR PRN #15 tab.rapdis 08/18/20 Unknown Rx Sulfamethoxazole/Trimethoprim 1 each PO Q12H #20 tablet 08/18/20 Unknown Rx [Bactrim DS TAB] ED Physical Exam - General Limitations: No Limitations General appearance: alert, in no apparent distress - Head Head exam: Present: atraumatic, normocephalic, normal inspection - Eye Eye exam: Present: normal appearance, PERRL, EOMI Pupils: Present: normal accommodation - ENT ENT exam: Present: normal exam, normal orophraynx, mucous membranes moist, TM's normal bilaterally, normal external ear exam - Neck Neck exam: Present: normal inspection, full ROM - Respiratory Respiratory exam: Present: normal lung sounds bilaterally. Absent: respiratory distress, wheezes, rales, chest wall tenderness, accessory muscle use, decreased breath sounds - Cardiovascular Cardiovascular Exam: Present: normal rhythm, tachycardia, normal heart sounds. Absent: systolic murmur, diastolic murmur, rubs, gallop - GI/Abdominal GI/Abdominal exam: Present: soft, normal bowel sounds. Absent: distended, tenderness, guarding, rigid, hyperactive bowel sounds, hypoactive bowel sounds - Extremities Exam Extremities exam: Present: normal inspection, full ROM, normal capillary refill - Back Exam Back exam: Present: normal inspection, full ROM. Absent: tenderness, CVA tenderness (R), CVA tenderness (L), muscle spasm, paraspinal tenderness, vertebral tenderness - Neurological Exam Neurological exam: Present: alert, oriented X3, CN II-XII intact, normal gait, reflexes normal - Psychiatric Psychiatric exam: Present: normal affect, normal mood - Skin Skin exam: Present: warm, dry, intact, normal color, rash (Swollen, severely tender, erythematous maculopapular fluctuant rash on right axilla) ED Course Vital Signs 08/18/20 08/18/20 01:53 05:02 Temperature 99.7 F H Pulse Rate 107 H 83 Respiratory 18 18 Rate Blood Pressure 107/95 Blood Pressure 141/84 [Left] O2 Sat by Pulse 100 100 Oximetry - I & D Right Arm Type of Procedure: Simple Site: Right axilla Blade Size: 11 I & D Procedure: betadine prep, sterile drapes applied, sterile dressing applied, gauze wick placed Progress: The area was cleaned with normal saline and Betadine, local anesthetic lidocaine 1% solution was injected and infiltrated around the area for anesthesia. The area was then incised with grade 11 scalpel blade and drained completely. Copious thick purulent discharge drained from the abscess. The wound was then debrided and deloculated completely. Iodoform quarter-inch gauze was applied to the abscess wound and the wound was dressed appropriately. Patient tolerated the procedure well. On reevaluation, patient's pain is well controlled medications. Patient was discharged home on pain medications and antibiotics and was advised to return to the ED immediately if symptoms get worse, otherwise return to the ED in 2 days for wound recheck and packing removal. ED Medical Decision Making - Lab Data Result diagrams: 08/18/20 01:59 08/18/20 01:59 - Medical Decision Making This is a 30-year-old -[place] female with a history of obesity and recurrent chronic hidradenitis rashes who presents to the ED with complaint of acute onset persistent painful swollen erythematous maculopapular rash on right axilla for the last 1 week, worse in the last 2 days. Patient states that she is unable perform any active range of motion with right hand right arm because of worsening right axillary pain. Patient states that she has previously experiencing the symptoms and has had to come multiple times to the ED for I&D procedure. Patient states that the last episode of similar rash was about 3 months ago. In the ED, patient is alert and oriented x3 and is not in distress but appears to be in significant pain, is tachycardic but afebrile in triage. Labs are drawn, patient was treated for pain and also given initial antibiotics in the ED. lab test results were reviewed and showed acute leukocytosis of 14,700. Right axilla swollen painful fluctuant rash was incised and drained per protocol. Patient tolerated procedure well. The wound was then packed with iodoform quarter inch gauze and dressed appropriately. Patient was therefore discharged home on pain medications and antibiotics and was advised to follow-up with her primary care physician in 5 to 7 days for reevaluation. Patient was advised return to the ED immediately if symptoms get worse, otherwise return to the ED in 2 days for wound recheck and packing removal. - Differential Diagnosis Cellulitis; cutaneous abscess; folliculitis; lymphadenopathy Critical care attestation.: If time is entered above; I have spent that time in minutes in the direct care of this critically ill patient, excluding procedure time. ED Disposition Clinical Impression: Cellulitis of right axilla, Cutaneous abscess of right axilla Disposition: TO HOME OR SELFCARE Is pt being admited?: No Does the pt Need Aspirin: No Condition: Stable Instructions: Incision and Drainage, Care After, Skin Abscess, [id number], Cellulitis, Adult, [id number] Additional Instructions: Take medication with food, drink plenty of fluids and follow-up with your primary care physician in 5 to 7 days for reevaluation. Return to the ED immediately if your symptoms get worse. Otherwise return to the ED in 2 days for wound recheck and packing removal. Prescriptions: Sulfamethoxazole/Trimethoprim [Bactrim DS TAB] 1 each PO Q12H #20 tablet Clindamycin [Clindamycin CAP] 300 mg PO Q8HR #60 capsule Fluconazole (Nf) [Diflucan TAB] 150 mg PO ONCE #1 tablet HYDROcodone/APAP 5-325 [[place] 5-325 mg TAB] 1 each PO Q6HR PRN #12 tablet PRN Reason: Pain Ondansetron [Zofran Odt] 4 mg PO Q6HR PRN #15 tab.rapdis PRN Reason: Nausea Referrals: [facility] [Provider Group] - 3-5 Days Forms: Work/School Release Form(ED) Time of Disposition: 04:12 Print Language: GUINEAN
[2020-08-18 02:26] LABS: Basophils # (Auto) 0.1 K/mm3 (0.0-0.1); Basophils % (Auto) 0.4 % (0.0-1.8); Eosinophils # (Auto) 0.1 K/mm3 (0.0-0.4); Eosinophils % (Auto) 0.4 % (0.0-4.3); Hematocrit 29.3 % (30.3-42.9); Hemoglobin 10.1 gm/dl (10.1-14.3); Lymphocytes % (Auto) 13.9 % (13.4-35.0); Mean Corpuscular HGB Conc 34 % (30-34); Mean Corpuscular Volume 81 fl (79-97); Monocytes # (Auto) 1.1 K/mm3 (0.0-0.8); Monocytes % (Auto) 7.7 % (0.0-7.3); Platelet Count 480 K/mm3 (140-440); Red Blood Count 3.64 M/mm3 (3.65-5.03); Red Cell Distribution Width 16.3 % (13.2-15.2)
[2020-08-18 02:49] LABS: Alanine Aminotransferase 11 units/L (7-56); Albumin 4.2 g/dL (3.9-5); Blood Urea Nitrogen 9 mg/dL (7-17); Calcium 9.6 mg/dL (8.4-10.2); Hemolysis Index 0
[2020-08-18 02:54] LABS: BUN/Creatinine Ratio 15
[2020-08-18 06:23] VITALS: BP 132/81
== END 2020-08-18 06:24 | disposition home or self-care (01) ==
LOC: ED 01:45
DX: L03.111 Cellulitis of right axilla (principal); L02.411 Cutaneous abscess of right axilla; I10 Essential (primary) hypertension; Z98.890 Other specified postprocedural states; Z79.2 Long term (current) use of antibiotics; Z79.899 Other long term (current) drug therapy; Z88.6 Allergy status to analgesic agent; Z91.040 Latex allergy status; Z91.018 Allergy to other foods
CPT/HCPCS: 10060; 36415; 80053; 85025; 96365; 96366; 96375; 96376; 99283; J1170; J2405

== ENCOUNTER 2020-08-20 17:32 | Emergency (ER) | payer OTHER ==
[2020-08-20 17:40] VITALS: BP 155/81
--- NOTE | 2020-08-20 17:48 | Emergency Department Report ---
- General Chief complaint: Laceration/Recheck/Suture Stated complaint: PACKING REMOVE Time Seen by Provider: 08/20/20 17:33 Source: patient Mode of arrival: Ambulatory Limitations: No Limitations - History of Present Illness Initial comments: 30 yr old female presents to packing removal after I&D 2 days ago. Pt reports that area still painful but not as when she first came in and it has been draining. She states she has been compliant with her antibiotics. She denies any fever or chills or any other symptoms at this time. MD complaint: other (packing removal ) -: days(s) (2) Location: RUE (right axillar ) Severity: moderate - Related Data Home Medications Medication Instructions Recorded Confirmed Last Taken Ergocalciferol(Vitamin D2)(Nf) 400 unit PO DAILY 01/01/20 01/06/20 01/05/20 09:00 [Vitamin D (Nf)] Previous Rx's Medication Instructions Recorded Last Taken Type Clindamycin [Clindamycin CAP] 300 mg PO Q8HR #60 capsule 08/18/20 Unknown Rx Fluconazole (Nf) [Diflucan TAB] 150 mg PO ONCE #1 tablet 08/18/20 Unknown Rx HYDROcodone/APAP 5-325 [[place] 1 each PO Q6HR PRN #12 tablet 08/18/20 Unknown Rx 5-325 mg TAB] Ondansetron [Zofran Odt] 4 mg PO Q6HR PRN #15 tab.rapdis 08/18/20 Unknown Rx Sulfamethoxazole/Trimethoprim 1 each PO Q12H #20 tablet 08/18/20 Unknown Rx [Bactrim DS TAB] Allergies Allergy/AdvReac Type Severity Reaction Status Date / Time latex Allergy Hives Verified 01/01/20 16:04 NSAIDS (Non-Steroidal Allergy Hives Verified 01/01/20 16:04 Anti-Inflamma strawberry Allergy Hives Verified 01/01/20 16:04 Abscess Boil HPI - HPI Chief Complaint: Laceration/Recheck/Suture Stated Complaint: PACKING REMOVE Time Seen by Provider: 08/20/20 17:33 Home Medications: Home Medications Medication Instructions Recorded Confirmed Last Taken Ergocalciferol(Vitamin D2)(Nf) 400 unit PO DAILY 01/01/20 01/06/20 01/05/20 09:00 [Vitamin D (Nf)] Previous Rx's Medication Instructions Recorded Last Taken Type Clindamycin [Clindamycin CAP] 300 mg PO Q8HR #60 capsule 08/18/20 Unknown Rx Fluconazole (Nf) [Diflucan TAB] 150 mg PO ONCE #1 tablet 08/18/20 Unknown Rx HYDROcodone/APAP 5-325 [[place] 1 each PO Q6HR PRN #12 tablet 08/18/20 Unknown Rx 5-325 mg TAB] Ondansetron [Zofran Odt] 4 mg PO Q6HR PRN #15 tab.rapdis 08/18/20 Unknown Rx Sulfamethoxazole/Trimethoprim 1 each PO Q12H #20 tablet 08/18/20 Unknown Rx [Bactrim DS TAB] Allergies/Adverse Reactions: Allergies Allergy/AdvReac Type Severity Reaction Status Date / Time latex Allergy Hives Verified 01/01/20 16:04 NSAIDS (Non-Steroidal Allergy Hives Verified 01/01/20 16:04 Anti-Inflamma strawberry Allergy Hives Verified 01/01/20 16:04 ED Review of Systems ROS: Stated complaint: PACKING REMOVE Other details as noted in HPI Comment: All other systems reviewed and negative Skin: other (abscess right axillar s/p I&D) ED Past Medical Hx - Past Medical History Previous Medical History?: Yes Hx Hypertension: Yes (PIH, preeclampsia with previous ) Hx Heart Attack/AMI: No Hx Congestive Heart Failure: No Hx Diabetes: No Hx Deep Vein Thrombosis: No Hx Liver Disease: No Hx Renal Disease: No Hx Sickle Cell Disease: No Hx Arthritis: Yes (Neck) Hx Seizures: No Hx Asthma: No Hx COPD: No Hx HIV: No Additional medical history: Pre-eclampsia - Surgical History Past Surgical History?: Yes Additional Surgical History: c section - Social History Smoking Status: Never Smoker - Medications Home Medications: Home Medications Medication Instructions Recorded Confirmed Last Taken Type Ergocalciferol(Vitamin D2)(Nf) 400 unit PO DAILY 01/01/20 01/06/20 01/05/20 09:00 History [Vitamin D (Nf)] Clindamycin [Clindamycin CAP] 300 mg PO Q8HR #60 capsule 08/18/20 Unknown Rx Fluconazole (Nf) [Diflucan TAB] 150 mg PO ONCE #1 tablet 08/18/20 Unknown Rx HYDROcodone/APAP 5-325 [[place] 1 each PO Q6HR PRN #12 tablet 08/18/20 Unknown Rx 5-325 mg TAB] Ondansetron [Zofran Odt] 4 mg PO Q6HR PRN #15 tab.rapdis 08/18/20 Unknown Rx Sulfamethoxazole/Trimethoprim 1 each PO Q12H #20 tablet 08/18/20 Unknown Rx [Bactrim DS TAB] ED Physical Exam - General Limitations: No Limitations General appearance: alert, in no apparent distress - Respiratory Respiratory exam: Absent: respiratory distress - Cardiovascular Cardiovascular Exam: Present: regular rate - Extremities Exam Extremities exam: Present: normal inspection, full ROM - Neurological Exam Neurological exam: Present: alert, oriented X3, CN II-XII intact, normal gait - Psychiatric Psychiatric exam: Present: normal affect, normal mood - Skin Skin exam: Present: other (incised abscess noted right axillar. packing still in place - this was removed by me - there is still induration but no fluctuance or further drainage or cellulitis. ) ED Course Vital Signs 08/20/20 17:39 Temperature 98.8 F Pulse Rate 89 Respiratory 20 Rate Blood Pressure 155/81 [Right] O2 Sat by Pulse 100 Oximetry Critical care attestation.: If time is entered above; I have spent that time in minutes in the direct care of this critically ill patient, excluding procedure time. ED Disposition Clinical Impression: Abscess re-check Disposition: DC-01 TO HOME OR SELFCARE Is pt being admited?: No Does the pt Need Aspirin: No Condition: Stable Instructions: Wound Care, Adult Additional Instructions: Keep wound clean with soap and water. Dry well after each cleaning and cover. DO this daily until healed. Continue taking your antibiotics to completion. Follow up with your PCP as needed. Return to ED if symptoms changes or worsens in any way. Referrals: PRIMARY CARE, [Primary Care Provider] - 3-5 Days Time of Disposition: 17:48
== END 2020-08-20 17:57 | disposition home or self-care (01) ==
LOC: ED 17:32
DX: L02.411 Cutaneous abscess of right axilla (principal); Z48.01 Encounter for change or removal of surgical wound dressing; I10 Essential (primary) hypertension; M19.91 Primary osteoarthritis, unspecified site; Z98.890 Other specified postprocedural states; Z79.2 Long term (current) use of antibiotics; Z79.899 Other long term (current) drug therapy; Z91.040 Latex allergy status; Z88.6 Allergy status to analgesic agent
CPT/HCPCS: 99282

== ENCOUNTER 2020-12-21 19:56 | Emergency (ER) | payer OTHER ==
[2020-12-21 20:01] VITALS: BP 159/100
[2020-12-21] MEDS ORDERED: HYDROcodone/ACETAMINOPHEN 10-325MG TAB PO ONE (22:18)
[2020-12-21] MEDS ORDERED: CLINDAMYCIN 300 MG CAP PO ONE (23:20)
--- NOTE | 2020-12-21 23:23 | Emergency Department Report ---
Abscess Boil HPI - HPI Chief Complaint: Skin/Abscess/Foreign Body Stated Complaint: ABSCESS UNDER RT ARM Time Seen by Provider: 12/21/20 21:36 Duration: 3 Days Location: Upper Extremity Severity: Mild History: Yes Pain, No Fever, No Purulent Drainage, No Numbness, No Foreign Body, No Previous History, No Insect Bite HPI: This is a 30-year-old female nontoxic, well nourished in appearance, no acute signs of distress presents to the ED with c/o of redness and pain with swelling to right axilla area x 3 days. Patient denies any pus or drainage. Patient denies any fever, chills, nausea, vomiting, chest pain, shortness of breath, headache or stiff neck. Patient stated allergies to latex and NSAIDs. Home Medications: Home Medications Medication Instructions Recorded Confirmed Last Taken Ergocalciferol(Vitamin D2)(Nf) 400 unit PO DAILY 01/01/20 01/06/20 01/05/20 09:00 [Vitamin D (Nf)] Previous Rx's Medication Instructions Recorded Last Taken Type Clindamycin [Clindamycin CAP] 300 mg PO Q8HR #60 capsule 08/18/20 Unknown Rx Fluconazole (Nf) [Diflucan TAB] 150 mg PO ONCE #1 tablet 08/18/20 Unknown Rx HYDROcodone/APAP 5-325 [[place] 1 each PO Q6HR PRN #12 tablet 08/18/20 Unknown Rx 5-325 mg TAB] Ondansetron [Zofran Odt] 4 mg PO Q6HR PRN #15 tab.rapdis 08/18/20 Unknown Rx Sulfamethoxazole/Trimethoprim 1 each PO Q12H #20 tablet 08/18/20 Unknown Rx [Bactrim DS TAB] Acetaminophen/Codeine [Tylenol 1 tab PO Q6H PRN #12 tab 12/21/20 Unknown Rx /Codeine # 3 tab] Clindamycin [Clindamycin CAP] 300 mg PO Q8H #21 cap 12/21/20 Unknown Rx Allergies/Adverse Reactions: Allergies Allergy/AdvReac Type Severity Reaction Status Date / Time latex Allergy Hives Verified 01/01/20 16:04 NSAIDS (Non-Steroidal Allergy Hives Verified 01/01/20 16:04 Anti-Inflamma strawberry Allergy Hives Verified 01/01/20 16:04 ED Review of Systems ROS: Stated complaint: ABSCESS UNDER RT ARM Other details as noted in HPI Comment: All other systems reviewed and negative Constitutional: denies: chills, fever Eyes: denies: eye pain, eye discharge, vision change ENT: denies: ear pain, throat pain Respiratory: denies: cough, shortness of breath, wheezing Cardiovascular: denies: chest pain, palpitations Endocrine: no symptoms reported Gastrointestinal: denies: abdominal pain, nausea, diarrhea Genitourinary: denies: urgency, dysuria, discharge Musculoskeletal: denies: back pain, joint swelling, arthralgia Skin: denies: rash, lesions Neurological: denies: headache, weakness, paresthesias Psychiatric: denies: anxiety, depression Hematological/Lymphatic: denies: easy bleeding, easy bruising ED Past Medical Hx - Past Medical History Previous Medical History?: Yes Hx Hypertension: Yes (PIH, preeclampsia with previous ) Hx Heart Attack/AMI: No Hx Congestive Heart Failure: No Hx Diabetes: No Hx Deep Vein Thrombosis: No Hx Liver Disease: No Hx Renal Disease: No Hx Sickle Cell Disease: No Hx Arthritis: Yes (Neck) Hx Seizures: No Hx Asthma: No Hx COPD: No Hx HIV: No Additional medical history: Pre-eclampsia - Surgical History Past Surgical History?: Yes Additional Surgical History: c section - Social History Smoking Status: Never Smoker - Medications Home Medications: Home Medications Medication Instructions Recorded Confirmed Last Taken Type Ergocalciferol(Vitamin D2)(Nf) 400 unit PO DAILY 01/01/20 01/06/20 01/05/20 09:00 History [Vitamin D (Nf)] Clindamycin [Clindamycin CAP] 300 mg PO Q8HR #60 capsule 08/18/20 Unknown Rx Fluconazole (Nf) [Diflucan TAB] 150 mg PO ONCE #1 tablet 08/18/20 Unknown Rx HYDROcodone/APAP 5-325 [[place] 1 each PO Q6HR PRN #12 tablet 08/18/20 Unknown Rx 5-325 mg TAB] Ondansetron [Zofran Odt] 4 mg PO Q6HR PRN #15 tab.rapdis 08/18/20 Unknown Rx Sulfamethoxazole/Trimethoprim 1 each PO Q12H #20 tablet 08/18/20 Unknown Rx [Bactrim DS TAB] Acetaminophen/Codeine [Tylenol 1 tab PO Q6H PRN #12 tab 12/21/20 Unknown Rx /Codeine # 3 tab] Clindamycin [Clindamycin CAP] 300 mg PO Q8H #21 cap 12/21/20 Unknown Rx ED Abscess Boil Physical Exam - Exam General: Vital signs noted. No distress. Alert and acting appropriately. Size: 4 cm Exam: Yes Tenderness, Yes Fluctuance, Yes Normal Neurologic Exam, Yes Normal Circulation, No Surrounding Cellulites/Erythema, No Lymphangitis, No Crepitation, No Heart Murmur I & D Note - I & D Note I & D Note: Under sterile field, I used Betadine to cleanse the area. I then used 0.5% Marcaine with 25-gauge 5/8 needle to inject area for anesthetic purposes. Total volume injected 3 mL. I then used an 11 blade to make a 1 cm incision. About 6 mL's of purulent drainage has been noted. I then used a hemostat to break the abscess formation. I then used sterile 0.9% normal saline flush to flush the wound with total volume of 40 mL used. I then put a 1 inch iodoform packing to the incision. A sterile 4 x 4 with tape has been applied as dressing. Bleeding is under control. Patient tolerated the procedure well with no signs of distress noted. ED Course Vital Signs 12/21/20 19:59 Temperature 99.7 F H Pulse Rate 94 H Respiratory 16 Rate Blood Pressure 159/100 O2 Sat by Pulse 99 Oximetry Vital Signs 12/21/20 12/22/20 19:59 00:12 Temperature 99.7 F H 98.7 F Pulse Rate 94 H 83 Respiratory 16 16 Rate Blood Pressure 159/100 O2 Sat by Pulse 99 99 Oximetry - Reevaluation(s) Reevaluation #1: 12/21/20 23:21 Patient is speaking in full sentences with no signs of distress noted. Critical care attestation.: If time is entered above; I have spent that time in minutes in the direct care of this critically ill patient, excluding procedure time. ED Medical Decision Making - Medical Decision Making This is a 30-year-old female that presents with right axillary abscess. Patient is stable and was examined by me. This is incision and drainage and has been performed and patient tolerated well. A sterile dressing has been applied. Patient was educated on proper wound care. Patient is discharged with Bactrim and Tylenol with codeine and was instructed not to operate any machinery while taking Tylenol with codeine due to drowsiness. Patient was instructed to return in 2 days for packing removal. Patient was instructed to refer to Follow-up with a primary care doctor in 3-5 days or if symptoms worsen and continue return to emergency room as soon as possible. At time of discharge, the patient does not seem toxic or ill in appearance. No acute signs of distress noted. Patient agrees to discharge treatment plan of care. No further questions noted by the patient. ED Disposition Clinical Impression: Abscess of right axilla, Encounter for incision and drainage procedure Disposition: TO HOME OR SELFCARE Is pt being admited?: No Does the pt Need Aspirin: No Condition: Stable Instructions: Skin Abscess, Incision and Drainage, Care After Additional Instructions: Follow-up with a primary care doctor in 3-5 days or if symptoms worsen and continue return to emergency room as soon as possible. Return in 2 days for packing removal and reassessment of abscess. Prescriptions: Clindamycin [Clindamycin CAP] 300 mg PO Q8H #21 cap Acetaminophen/Codeine [Tylenol /Codeine # 3 tab] 1 tab PO Q6H PRN #12 tab PRN Reason: Pain , Severe (7-10) Referrals: PRIMARY MD TL [Primary Care Provider] - 3-5 Days ALEXI TODD MD [Staff Physician] - 3-5 Days Forms: Work/School Release Form(ED) Time of Disposition: 23:28
== END 2020-12-22 01:00 | disposition home or self-care (01) ==
LOC: ED 19:56
DX: L02.411 Cutaneous abscess of right axilla (principal); I10 Essential (primary) hypertension; M19.91 Primary osteoarthritis, unspecified site; Z98.890 Other specified postprocedural states; Z79.2 Long term (current) use of antibiotics; Z79.899 Other long term (current) drug therapy; Z91.040 Latex allergy status; Z91.018 Allergy to other foods; Z88.8 Allergy status to other drugs, medicaments and biological substances
CPT/HCPCS: 99282

== ENCOUNTER 2021-07-23 20:53 | Emergency (ER) | payer OTHER ==
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
[2021-07-23] MEDS ORDERED: traMADol 50 MG TAB PO ONE (22:31)
[2021-07-23 22:39] VITALS: BP 121/78
== END 2021-07-23 22:37 | disposition home or self-care (01) ==
LOC: ED 20:53
DX: M54.12 Radiculopathy, cervical region (principal); H60.92 Unspecified otitis externa, left ear; I10 Essential (primary) hypertension; M19.90 Unspecified osteoarthritis, unspecified site; Z98.890 Other specified postprocedural states; Z91.02 Food additives allergy status; Z91.040 Latex allergy status; Z91.09 Other allergy status, other than to drugs and biological substances
CPT/HCPCS: 99282

== ENCOUNTER 2021-07-24 20:40 | Emergency (ER) | payer OTHER ==
[2021-07-24 23:11] VITALS: BP 147/85
--- NOTE | 2021-07-27 13:04 | Electrocardiograph Report ---
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
== END 2021-07-25 02:25 | disposition left against medical advice (07) ==
LOC: ED 20:40
DX: R07.89 Other chest pain (principal); Z53.21 Procedure and treatment not carried out due to patient leaving prior to being seen by health care provider
CPT/HCPCS: 93005; 93010

== ENCOUNTER 2022-01-10 09:38 | Emergency (ER) | payer OTHER ==
--- NOTE | 2022-01-10 10:22 | Event Note ---
ED Screening Note ED Screening Note: Here for dysuria. Saw pcp yesterday and was started on antibiotics but did not feel better today She decided to leave and give her antibiotics time to work This initial assessment/diagnostic orders/clinical plan/treatment(s) is/are subject to change based on patients health status, clinical progression and re- assessment by fellow clinical providers in the ED. Further treatment and workup at subsequent clinical providers discretion. Patient/guardian urged not to elope from the ED as their condition may be serious if not clinically assessed and managed. Initial orders include: left
[2022-01-10 11:04] LABS: Bacteria,Urine 1+ /HPF (Negative); Mucus,Urine 1+ /HPF
[2022-01-10 11:07] LABS: Color,Urine Amber (Yellow); HCG Qualitative,Urine Negative (Negative)
[2022-01-10 11:08] LABS: Bilirubin,Urine Negative (Negative); Blood,Urine Trace (Negative); PH,Urine 5.5 (5.0-7.0); Urobilinogen,Urine < 2.0 mg/dL (<2.0)
== END 2022-01-10 10:13 | disposition left against medical advice (07) ==
LOC: ED 09:38
DX: M54.50 Low back pain, unspecified (principal); Z53.21 Procedure and treatment not carried out due to patient leaving prior to being seen by health care provider
CPT/HCPCS: 81001; 81025

== ENCOUNTER 2022-01-29 19:51 | Emergency (ER) | payer OTHER | END 2022-01-30 17:27 | disposition left against medical advice (07) | LOC: ED 19:51 | DX: N23 Unspecified renal colic (principal); Z53.21 Procedure and treatment not carried out due to patient leaving prior to being seen by health care provider ==